=== PATIENT | female | born 1985 | race Two or more races ===

== ENCOUNTER 2020-09-18 20:03 | Emergency (ER) | payer SELFPAY ==
[~2020-09-18] VITALS: Ht 172.7 cm; Wt 72.7 kg
--- NOTE | 2020-09-18 21:48 | PHYS DOC ---
General Adult EDM: Chief Complaint: ABDOMINAL PAIN HPI: HPI: Patient is a 35-year-old patient complaining of abdominal pain. Reports this is been going on for a few days without any known inciting event, trauma or ingestion. Nothing known makes better, patient reports urinating at times makes worse. Patient describes generalized abdominal pain that is mostly right-sided in nature under her ribs. Described as sharp pains that come and go and burning when she urinates. She has had no fever. Review of Systems: Review of Systems: Fourteen body systems of review of systems have been reviewed. See HPI for pertinent positives and negative responses, other brooks all other systems are negative, non-pertinent or non-contributory Heart Score: C/O Chest Pain: No HEART Score for Chest Pain: HEART Score for Chest Pain Response (Comments) Value History Slighlty/Non-Suspicious 0 ECG Normal 0 Age < 45 0 Risk Factors No Risk Factors 0 Total 0 Risk Factors: Risk Factors: DM, Current or recent (<one month) smoker, HTN, HLP, family history of CAD, obesity. Risk Scores: Score 0 - 3: 2.5% MACE over next 6 weeks - Discharge Home Score 4 - 6: 20.3% MACE over next 6 weeks - Admit for Clinical Observation Score 7 - 10: 72.7% MACE over next 6 weeks - Early Invasive Strategies Physical Exam: PE: Constitutional: Well developed, well nourished, no acute distress, non-toxic appearance. HENT: Normocephalic, atraumatic, bilateral external ears normal, oropharynx moist, no oral exudates, nose normal. Eyes: PERRLA, EOMI, conjunctiva normal, no discharge. Neck: Normal range of motion, no tenderness, supple, no stridor. Cardiovascular: Heart rate regular, sinus rhythm, no murmurs rubs or gallops Lungs & Thorax: Bilateral breath sounds clear to auscultation Abdomen: Bowel sounds normal, soft, no tenderness, no masses, no pulsatile masses. Nonsurgical abdomen, no peritoneal signs Skin: Warm, dry, no erythema, no rash. Back: No tenderness, no CVA tenderness. Extremities: No tenderness, no cyanosis, no clubbing, ROM intact, no edema. Neurologic: Alert and oriented X 3, grossly normal motor & sensory function, no focal deficits noted. Psychologic: Affect normal, judgement normal, mood normal. Current Patient Data: Labs: Current Medications Medications (Trade) Dose Ordered Sig/Shila Route PRN Reason Start Time Stop Time Status Last Admin Dose Admin Sodium Chloride 1,000 ml @ 1,000 mls/hr 1X ONCE IV 09/19/20 00:30 09/19/20 01:29 DC 09/19/20 00:08 Fentanyl Citrate (Fentanyl 2ml Vial) 50 mcg 1X ONCE IVP 09/19/20 00:30 09/19/20 00:31 DC 09/19/20 00:09 Iohexol (Omnipaque 300 Mg/ml) 75 ml 1X ONCE IV 09/19/20 01:00 09/19/20 01:01 DC 09/19/20 00:20 Info (CONTRAST GIVEN -- Rx MONITORING) 1 each PRN DAILY PRN MC SEE COMMENTS 09/19/20 00:30 09/19/20 02:18 DC Cephalexin HCl (Keflex) 1,000 mg 1X ONCE PO 09/19/20 02:15 09/19/20 02:16 DC 09/19/20 02:11 Vital Signs: Vital Signs Date Time Temp Pulse Resp B/P (MAP) Pulse Ox O2 Delivery O2 Flow Rate FiO2 09/18/20 22:43 98.1 93 18 119/57 (77) 96 Room Air 98.1 Vital Signs Date Time Temp Pulse Resp B/P (MAP) Pulse Ox O2 Delivery O2 Flow Rate FiO2 09/19/20 00:17 84 18 123/56 (78) 97 Room Air 09/18/20 22:45 97.8 97.8 EKG: EKG: EKG ordered and interpreted by myself at 2332 hours as sinus rhythm at 84 bpm, unremarkable intervals, no ischemic findings, no STEMI Radiology/Procedures: Radiology/Procedures: EXAM: CT ABDOMEN/PELVIS WITH CONTRAST. HISTORY: Right upper quadrant and epigastric pain. TECHNIQUE: Computed tomography of the abdomen and pelvis was performed after the intravenous administration of iodinated contrast. One or more of the following individualized dose reduction techniques were utilized for this examination: 1. Automated exposure control. 2. Adjustment of the mA and/or kV according to patient size. 3. Use of iterative reconstruction technique. COMPARISON: None. FINDINGS: Lung windows through the visualized portions of the bases reveal no abnormality. Bone windows reveal no suspicious lesions. There is an 8 mm region of hypoenhancement along the pancreaticoduodenal groove as seen on axial image 31. This is likely volume averaging with fat in the pancreaticoduodenal groove. No clear pancreatic parenchymal lesion or inflammatory change is identified. The liver, gallbladder, spleen, and adrenal glands are unremarkable. There is a 3 mm calculus in the right renal upper pole. The left kidney enhances slightly less avidly than the right and there is mild left ureteral urothelial thickening. There is no hydronephrosis. Note is made of a retroaortic left renal vein. There are no pathologically enlarged lymph nodes. The appendix is not inflamed. There is no small bowel obstruction. IMPRESSION: 1. Mild left urothelial thickening and decreased enhancement of the left kidney. Correlate with urinalysis to exclude pyelonephritis. 2. A small focus of hypoattenuation along the pancreaticoduodenal groove is likely volume averaging of normal structures. There is persistent unexplained epigastric/right upper quadrant pain, MRCP with and without contrast is suggested for further evaluation. Electronically signed by: Frederic Shi MD (09/19/2020 1:47 AM) [facility] Course & Med Decision Making: Course & Med Decision Making Vital signs stable, HPI and physical exam nonconcerning for emergent issues. ER work-up consistent with UTI, based on symptoms I have concern for pyelonephritis Patient overall well-appearing and can tolerate p.o. intake, joint decision made to discharge home with p.o. antibiotics with close PCP follow-up and strict return precautions in case this gets worse. All questions and concerns addressed prior to ER departure Jeremy Disclaimer: Jeremy Disclaimer: This electronic medical record was generated, in whole or in part, using a voice recognition dictation system. Departure Departure Impression: Primary Impression: UTI (urinary tract infection) Additional Impression: RUQ abdominal pain Disposition: HOME / SELF CARE / HOMELESS Condition: STABLE Referrals: NO PCP (PCP) Patient Instructions: Urinary Tract Infection Additional Instructions: You were seen for a urinary tract infection. Please continue to take the antibiotics as prescribed. As disclosed your physical exam and ER work-up did not show any emergent or surgical findings. With that said, with your long-term right upper quadrant abdominal pain it is recommended you seek continued outpatient follow-up on this. Please contact your primary care physician first thing in the morning to review your ER visit today. It is recommended that you have an MRCP performed and/or follow-up with a boat hoist operator helper in the outpatient setting for consultation. You should return to the ED if you develop worsening pain, fever, flank pain, or any other new or concerning symptoms. Scripts Cephalexin (CEPHALEXIN) 500 Mg Tablet 2 TAB PO BID for 10 Days, #40 TAB Prov: GELY MOSER DO 09/19/20 GELY MOSER DO September 18, 2020 21:48
[2020-09-19 00:05] LABS: BASO # 0.1 x10^3/uL (0.0-0.2); BASO % 1 % (0-3); EOS # 0.1 x10^3/uL (0.0-0.7); EOS % 1 % (0-3); HEMATOCRIT 38.3 % (36.0-47.0); LYMPH % 10 % (24-48); MEAN CORPUSCULAR HEMOGLOBIN 31 pg (25-35); MEAN CORPUSCULAR HGB CONC 34 g/dL (31-37); MEAN CORPUSCULAR VOLUME 92 fL (79-100); MONO # 1.2 x10^3/uL (0.0-1.1); MONO % 12 % (0-9); NEUT # 8.2 x10^3/uL (1.8-7.7); NEUT % 77 % (31-73); PLATELET COUNT 288 x10^3/uL (140-400); RED BLOOD COUNT 4.15 x10^6/uL (3.50-5.40); RED CELL DISTRIBUTION WIDTH 13.7 % (11.5-14.5); WHITE BLOOD COUNT 10.6 x10^3/uL (4.0-11.0)
[2020-09-19 00:13] LABS: CALCIUM 8.6 mg/dL (8.5-10.1); CREATININE 0.6 mg/dL (0.6-1.0); GFR 112.5; POTASSIUM 3.6 mmol/L (3.5-5.1)
[2020-09-19 00:20] LABS: ALBUMIN 3.8 g/dL (3.4-5.0); ALBUMIN/GLOBULIN RATIO 1.1 (1.0-1.7); TOTAL BILIRUBIN 0.6 mg/dL (0.2-1.0); TOTAL PROTEIN 7.4 g/dL (6.4-8.2)
[2020-09-19] MEDS ORDERED: fentaNYL PF VIAL 100 MCG/2 ML VIAL IVP ONE (00:30)
[2020-09-19] MEDS ORDERED: CONTRAST GIVEN. MC PRN (00:30)
[2020-09-19] MEDS ORDERED: IV NORMAL SALINE 1000ML BAG 1,000 ML IV ONE (00:30)
[2020-09-19] MEDS ORDERED: IOHEXOL 300 MG/ML 100ML VIAL. IV ONE (01:00)
--- NOTE | 2020-09-19 01:12 | EKG ---
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
[2020-09-19 01:18] LABS: BILIRUBIN,URINE NEGATIVE (NEG); CLARITY,URINE CLEAR; COLOR,URINE YELLOW; NITRITE,URINE POSITIVE (NEG); PROTEIN,URINE NEGATIVE (NEG-TRACE); UROBILINOGEN,URINE 0.2 mg/dL (0.2 mg/dL)
[2020-09-19 01:26] LABS: BACTERIA,URINE MANY /HPF (0-FEW); WBC,URINE 20-40 /HPF (0-4)
[2020-09-19 01:47] VITALS: BP 106/55
--- NOTE | 2020-09-19 01:49 | RAD ---
EXAM: CT ABDOMEN/PELVIS WITH CONTRAST. HISTORY: Right upper quadrant and epigastric pain. TECHNIQUE: Computed tomography of the abdomen and pelvis was performed after the intravenous administ ration of iodinated contrast. One or more of the following individualized dose reduction techniques w ere utilized for this examination: 1. Automated exposure control. 2. Adjustment of the mA and/or kV according to patient size. 3. Use of iterative reconstruction technique. COMPARISON: None. FINDINGS: Lung windows through the visualized portions of the bases reveal no abnormality. Bone windo ws reveal no suspicious lesions. There is an 8 mm region of hypoenhancement along the pancreaticoduodenal groove as seen on axial imag e 31. This is likely volume averaging with fat in the pancreaticoduodenal groove. No clear pancreatic parenchymal lesion or inflammatory change is identified. The liver, gallbladder, spleen, and adrenal glands are unremarkable. There is a 3 mm calculus in the right renal upper pole. The left kidney enhances slightly less avidly than the right and there is mil d left ureteral urothelial thickening. There is no hydronephrosis. Note is made of a retroaortic left renal vein. There are no pathologically enlarged lymph nodes. The appendix is not inflamed. There is no small bow el obstruction. IMPRESSION: 1. Mild left urothelial thickening and decreased enhancement of the left kidney. Correlate with urina lysis to exclude pyelonephritis. 2. A small focus of hypoattenuation along the pancreaticoduodenal groove is likely volume averaging o f normal structures. There is persistent unexplained epigastric/right upper quadrant pain, MRCP with and without contrast is suggested for further evaluation. Electronically signed by: Frederic Shi MD (09/19/2020 1:47 AM) [facility]
[2020-09-19] MEDS ORDERED: CEPH500T PO (01:55)
[2020-09-19] MEDS ORDERED: CEPHALEXIN 250 MG CAPSULE. PO ONE (02:15)
== END 2020-09-19 02:15 | disposition home or self-care (01) ==
LOC: ER 20:03
DX: N39.0 Urinary tract infection, site not specified (principal)
CPT/HCPCS: 36415; 74177; 80053; 81001; 81025; 83690; 84484; 85025; 87077; 87086; 87186; 93005; 96361; 96374; 99285; G0480; J3010; J7030; Q9967; 96375